=== PATIENT | male | born 1970 | race Caucasian/White ===

== ENCOUNTER 2016-08-04 21:30 | Emergency (ER) | payer OTHER ==
[~2016-08-04 21:30] MED LIST: COUMADIN10 MG; KEFLEX500 MG PO
[2016-08-04] MEDS ORDERED: XARELTO20 M1 PO (22:07)
[2016-08-04] MEDS ORDERED: ZESTORETIC 20-1 EAC3 PO (22:07)
[2016-08-04 22:08] LABS: BASO % 0.3 % (0-2); EOS % 3.3 % (0-7); EOSINOPHIL ABSOLUTE COUNT 0.2 tho/cmm (0.0-0.7); HCT-HEMATOCRIT 42.9 % (36.0-53.5); HGB-HEMOGLOBIN 15.1 gm/dl (13.5-17.0); IMMATURE GRANULOCYTES ABSOLUTE 0.02 tho/cmm (0-0.03); IMMATURE GRANULOCYTES PERCENT 0.3 % (0-0.3); LYMPH % 38.8 % (20-45); LYMPH ABSOLUTE COUNT 2.4 tho/cmm (0.8-4.5); MCH (MEAN CORPUSCULAR HGB) 30.8 pg (28.0-32.0); MCHC MEAN CORPUSCULAR HGB CONC 35.2 % (32.0-36.0); MCV (MEAN CELL VOLUME) 87.4 fl (82.0-96.0); MONO % 10.9 % (0-12); MONOCYTE ABSOLUTE COUNT 0.7 tho/cmm (0.0-1.2); NEUTROPHIL ABSOLUTE COUNT 2.9 tho/cmm (1.6-8.0); NEUTROPHIL-AUTOMATED 2.9 tho/cmm (1.6-8.0); NEUTROPHILS % 46.4 % (40-80); PLATELET COUNT 155 tho/cmm (150-450); RED BLOOD COUNT 4.91 mil/cmm (4.40-5.70); RED CELL DISTRIBUTION WIDTH 12.7 % (12.4-16.4); WHITE BLOOD COUNT 6.1 tho/cmm (4.0-10.0)
[2016-08-04] MEDS ORDERED: LIPITOR20 M1 PO (22:08)
[2016-08-04] MEDS ORDERED: VICTOZA 2-0.6 MG/0.1 SC ×2 (22:09→22:10)
[2016-08-04 22:11] LABS: PROTHROMBIN TIME 12.1 SECONDS (9.0-13.6)
== END 2016-08-04 23:16 ==
LOC: EDMED 21:30
PROVIDERS: Emergency Medicine Emergency Medical Services
DX: R04.0 Epistaxis (principal)